=== PATIENT | male | born 1945 | race Caucasian/White ===

== ENCOUNTER 2022-07-21 10:39 | Inpatient (IN) | payer BC ==
[~2022-07-21] VITALS: Ht 165.1 cm; Wt 77.0 kg
[2022-07-21 12:27] LABS: APTT 33 SECONDS (22-32)
[2022-07-21 12:30] LABS: BASOPHILS % (AUTO) 0.1 % (0-1); EOSINOPHILS % (AUTO) 0.1 % (0-6); HEMATOCRIT 37.5 % (42.0-52.0); HEMOGLOBIN 12.3 g/dl (14.0-17.9); LYMPHOCYTES # (AUTO) 0.2 X10'3 (1.1-4.8); LYMPHOCYTES % (AUTO) 1.6 % (21-51); MEAN CORPUSCULAR HEMOGLOBIN 31.3 PG (27.0-31.0); MEAN CORPUSCULAR HGB CONC 32.9 g/dL (33.0-36.5); MEAN CORPUSCULAR VOLUME 95.3 FL (78-98); MEAN PLATELET VOLUME 8.1 FL (7.4-10.4); MONOCYTES # (AUTO) 0.3 X10'3 (0-0.9); MONOCYTES % (AUTO) 2.6 % (2-12); NEUTROPHILS # (AUTO) 12.5 X10'3 (1.8-7.7); NEUTROPHILS % (AUTO) 95.6 % (42-75); PLATELET COUNT 218 X10'3 (140-440); RED BLOOD COUNT 3.94 X10'6 (4.70-6.10); RED CELL DISTRIBUTION WIDTH 13.2 % (11.5-14.5); WHITE BLOOD COUNT 13.1 X10'3 (4.5-11.0)
[2022-07-21 12:33] LABS: ALANINE AMINOTRANSFERASE 15 U/L (12-78); ALBUMIN 2.7 G/DL (3.4-5.0); ALBUMIN/GLOBULIN RATIO 0.6 (1.1-1.5); ALKALINE PHOSPHATASE 62 IU/L (46-116); ANION GAP 13 (8-16); ASPARTATE AMINO TRANSFERASE 13 U/L (10-37); BILIRUBIN,TOTAL 0.6 MG/DL (0.1-1.0); BLOOD UREA NITROGEN 65 MG/DL (7-18); BUN/CREATININE RATIO 12.8 (5.4-32.0); CALCIUM 8.9 MG/DL (8.5-10.1); CHLORIDE 101 MMOL/L (99-107); CREATININE 5.07 MG/DL (0.60-1.10); GLUCOSE 110 MG/DL (70-104); POTASSIUM 3.7 MMOL/L (3.5-5.1); SODIUM 135 MMOL/L (135-145); TOTAL PROTEIN 7.4 G/DL (6.4-8.2); eGFR 11 ML/MIN
[2022-07-21 12:45] LABS: MAGNESIUM 2.2 MG/DL (1.5-2.4)
[2022-07-21] MEDS ORDERED: ringers solution, lactated 1000ml IV soln IV ONE (13:10)
[2022-07-21 13:28] LABS: D-DIMER 1.47 MG/L FEU (0-0.50)
[2022-07-21] MEDS ORDERED: CYAN1TAB69 PO (14:52)
[2022-07-21] MEDS ORDERED: LISI20TA28 PO (14:52)
[2022-07-21] MEDS ORDERED: FENO48TA10 PO (14:52)
[2022-07-21] MEDS ORDERED: CHOL20003 PO (14:52)
[2022-07-21] MEDS ORDERED: CELE-85 PO (14:52)
[2022-07-21] MEDS ORDERED: PERFLUTREN PROTEIN-A MICROSPHR (Optison) 0.22 MG/ML 3ML VIAL IV ONE (15:20)
[2022-07-21] MEDS ORDERED: magnesium hydroxide 30ml (MOM) UD suspension PO PRN (15:20)
[2022-07-21] MEDS ORDERED: potassium Cl 20 mEq SR tablet PO PRN ×2 (15:20)
[2022-07-21] MEDS ORDERED: acetaminophen 325mg tablet PO PRN (15:20)
[2022-07-21] MEDS ORDERED: potassium Cl 40MEQ/1/2NS 520ml 520 ML IV PRN (15:20)
[2022-07-21] MEDS ORDERED: magnesium 4gm in 100ml NS 100 ML IV PRN (15:20)
[2022-07-21] MEDS ORDERED: magnesium Cl slow-release 64mg tablet PO PRN (15:20)
[2022-07-21] MEDS ORDERED: mag hydrox/Alum hydrox/simeth 30ml oral suspension PO PRN (15:20)
[2022-07-21] MEDS ORDERED: ondansetron/PF 4mg/2ml inj IV PRN (15:20)
[2022-07-21 16:18] LABS: C-REACTIVE PROTEIN 42.02 MG/DL (0.0-0.5)
[2022-07-21] MEDS: cefepime 1GM/NS ADD-VANTAGE 100 ML IV SCH (16:38)
[2022-07-21] MEDS ORDERED: celeCOXIB 100mg capsule PO PRN (16:50)
[2022-07-21] MEDS: K and/or MAG REPLACEMENT MC SCH (19:50)
[2022-07-21] MEDS: docusate sod 100mg capsule PO SCH (20:00)
[2022-07-21 20:45] VITALS: BP 136/81
[2022-07-21] MEDS: dexamethasone 4mg/ml inj IV SCH (21:48)
[2022-07-21] MEDS: enoxaparin 30mg/0.3ml syringe SQ SCH (21:55)
[2022-07-21 22:00] VITALS: BP 134/78
[2022-07-22] MEDS: dexamethasone 4mg/ml inj IV SCH ×2 (01:56→09:13)
[2022-07-22 02:00] VITALS: BP 132/89
[2022-07-22 06:00] VITALS: BP 133/82
--- NOTE | 2022-07-22 06:47 | NUR ---
report given to Nora MERCADO
[2022-07-22 07:05] LABS: BASOPHILS % (AUTO) 0.3 % (0-1); EOSINOPHILS % (AUTO) 0 % (0-6); HEMATOCRIT 36.6 % (42.0-52.0); LYMPHOCYTES # (AUTO) 0.4 X10'3 (1.1-4.8); LYMPHOCYTES % (AUTO) 3.6 % (21-51); MEAN CORPUSCULAR HEMOGLOBIN 31.2 PG (27.0-31.0); MEAN CORPUSCULAR HGB CONC 32.9 g/dL (33.0-36.5); MEAN PLATELET VOLUME 8.2 FL (7.4-10.4); MONOCYTES # (AUTO) 0.2 X10'3 (0-0.9); MONOCYTES % (AUTO) 2.5 % (2-12); NEUTROPHILS # (AUTO) 9.1 X10'3 (1.8-7.7); NEUTROPHILS % (AUTO) 93.6 % (42-75); PLATELET COUNT 245 X10'3 (140-440); RED BLOOD COUNT 3.85 X10'6 (4.70-6.10); RED CELL DISTRIBUTION WIDTH 13.5 % (11.5-14.5); WHITE BLOOD COUNT 9.8 X10'3 (4.5-11.0)
[2022-07-22 07:20] LABS: ALBUMIN 2.4 G/DL (3.4-5.0); ANION GAP 12 (8-16); BLOOD UREA NITROGEN 78 MG/DL (7-18); BUN/CREATININE RATIO 14.7 (5.4-32.0); CALCIUM 8.7 MG/DL (8.5-10.1); CHLORIDE 101 MMOL/L (99-107); CREATININE 5.29 MG/DL (0.60-1.10); GLUCOSE 161 MG/DL (70-104); MAGNESIUM 2.6 MG/DL (1.5-2.4); SODIUM 135 MMOL/L (135-145); TOTAL CARBON DIOXIDE 21.8 MMOL/L (24-32); eGFR 11 ML/MIN
[2022-07-22 07:36] LABS: C-REACTIVE PROTEIN 39.98 MG/DL (0.0-0.5)
[2022-07-22] MEDS: K and/or MAG REPLACEMENT MC SCH (08:00)
[2022-07-22] MEDS ORDERED: CYANOCOBALAMIN PO SCH (08:00)
[2022-07-22] MEDS: docusate sod 100mg capsule PO SCH (08:00)
[2022-07-22] MEDS ORDERED: PERFLUTREN PROTEIN-A MICROSPHR (Optison) 0.22 MG/ML 3ML VIAL IV ONE (08:00)
[2022-07-22] MEDS ORDERED: FOLIC ACID PO SCH (08:00)
[2022-07-22] MEDS ORDERED: lisinopril 20mg tablet PO SCH (08:00)
[2022-07-22] MEDS ORDERED: cholecalciferol (vitamin D3) 1,000 unit (25mcg) tablet PO SCH (08:00)
[2022-07-22] MEDS ORDERED: fenofibrate 48mg tablet PO SCH (08:00)
[2022-07-22] MEDS: cefepime 1GM/NS ADD-VANTAGE 100 ML IV SCH (09:05)
[2022-07-22] MEDS: enoxaparin 30mg/0.3ml syringe SQ SCH (09:21)
[2022-07-22 10:50] VITALS: BP 147/84
[2022-07-22] MEDS ORDERED: CEFD300C21 PO (11:45)
[2022-07-22] MEDS ORDERED: DEXA2TAB PO (11:45)
--- NOTE | 2022-07-22 13:41 | NUR ---
pt discharged in stable condition to home with . belongings sent with pt. iv removed tip intact, no complications. pt educated on discharge follow up.
== END 2022-07-22 13:56 | disposition home or self-care (01) | DRG 177 ==
LOC: ER 10:41 → ED HOLD 15:23 → EDBEDREQ 19:10 → PCU 3S 20:30
PROVIDERS: ADMIT Family Medicine; ATTEND Family Medicine
PROC: CB121ZZ Planar Nuclear Medicine Imaging of Lungs and Bronchi using Technetium 99m (Tc-99m) (ICD-10-PCS; principal; 2022-07-21)
DX: U07.1 COVID-19 (principal); J18.9 Pneumonia, unspecified organism; J96.01 Acute respiratory failure with hypoxia; I12.0 Hypertensive chronic kidney disease with stage 5 chronic kidney disease or end stage renal disease; N18.5 Chronic kidney disease, stage 5; E11.22 Type 2 diabetes mellitus with diabetic chronic kidney disease; E78.5 Hyperlipidemia, unspecified; Z79.899 Other long term (current) drug therapy
CPT/HCPCS: 36415; 71046; 71250; 78580; 78582; 80048; 80053; 83735; 83880; 84484; 85025; 85379; 85610; 85730; 86140; 87081; 87635; 93005; 93308; 96360; 99285; A9539; A9540; C9803; G0378; J0692; J1100; J1650; J7030; J7120